=== PATIENT | male | born 1995 | race Caucasian/White ===

== ENCOUNTER 2019-12-03 05:26 | Emergency (ER) | payer OTHER ==
[~2019-12-03] VITALS: Ht 182.9 cm; Wt 74.8 kg
[2019-12-03] MEDS ORDERED: FAMOTIDINE 20 MG/2 ML VIAL IVP ONE (05:45)
[2019-12-03] MEDS ORDERED: IV NORMAL SALINE 1,000ML 1,000 ML IV SCH (05:45)
[2019-12-03] MEDS ORDERED: ONDANSETRON PF 4 MG/2 ML VIAL. IVP ONE (05:45)
--- NOTE | 2019-12-03 05:58 | PHYS DOC ---
Past History Past Medical History: No Pertinent History Past Surgical History: No Surgical History Additional Smoking Information: chews tobacco Alcohol Use: Occasionally Drug Use: None Adult General Chief Complaint Chief Complaint: NAUSEA/VOMITING/DIARRHEA HPI HPI Patient is a 23 year old male who presents with complaint of nausea, vomiting, and diarrhea. Patient states his symptoms started last night. Has had numerous episodes of both vomiting and diarrhea. States that the stools have been nonbloody. Denies any known sick contacts. Works at a local post. Denies any localizing pain in his abdomen at this time. Has not taking medications for symptoms. Denies any significant past medical history. No previous surgeries. Review of Systems Review of Systems Constitutional: Fatigue, denies fever or chills [] Eyes: Denies change in visual acuity, redness, or eye pain [] HENT: Denies nasal congestion or sore throat [] Respiratory: Denies cough or shortness of breath [] Cardiovascular: Denies chest pain or edema[] GI: Nausea, vomiting, diarrhea, denies abdominal pain[] : Denies dysuria or hematuria [] Musculoskeletal: Myalgias, denies back pain or joint pain [] Integument: Denies rash or skin lesions [] Neurologic: Denies headache, focal weakness or sensory changes [] All other systems were reviewed and found to be within normal limits, except as documented in this note. Current Medications Current Medications Current Medications Medications (Trade) Dose Ordered Sig/Alisha Start Time Stop Time Status Last Admin Dose Admin Famotidine (Pepcid Vial) 20 mg 1X ONCE 12/03/19 05:45 12/03/19 05:46 UNV Ondansetron HCl (Zofran) 4 mg 1X ONCE 12/03/19 05:45 12/03/19 05:46 UNV Sodium Chloride 1,000 ml @ 1,000 mls/hr Q1H 12/03/19 05:45 12/03/19 06:44 UNV Physical Exam Physical Exam Constitutional: Alert, afebrile, appears ill. [] HENT: Normocephalic, atraumatic, bilateral external ears normal, oropharynx moist, no oral exudates, nose normal. [] Eyes: PERRLA, EOMI, conjunctiva normal, no discharge. [] Neck: Normal range of motion, no tenderness, supple, no stridor. [] Cardiovascular: Tachycardia, regular rhythm, no murmur [] Lungs & Thorax: Bilateral breath sounds clear to auscultation [] Abdomen: Bowel sounds normal, soft, no tenderness, no masses, no pulsatile masses. [] Skin: Warm, dry, no erythema, no rash. [] Back: No tenderness, no CVA tenderness. [] Extremities: No tenderness, no cyanosis, no clubbing, ROM intact, no edema. [] Neurologic: Alert and oriented X 3, normal motor function, normal sensory function, no focal deficits noted. [] Current Patient Data Vital Signs Vital Signs Date Time Temp Pulse Resp B/P (MAP) Pulse Ox O2 Delivery O2 Flow Rate FiO2 12/03/19 05:36 99.1 70 20 96 Room Air EKG EKG Not performed[] Radiology/Procedures Radiology/Procedures [] Course & Med Decision Making Course & Med Decision Making Pertinent Labs and Imaging studies reviewed. (See chart for details) IV fluids and IV anti-emetics ordered. At time of sign out, lab work and response to treatment pending. Care of patient signed out to Dr.'s Dupree at [phone].[] Dragon Disclaimer Dragon Disclaimer This electronic medical record was generated, in whole or in part, using a voice recognition dictation system. Departure Departure: Impression: Primary Impression: Nausea and vomiting Additional Impression: Diarrhea Disposition: HOME/RESIDENCE PRIOR TO ADM Condition: STABLE Referrals: PCP,UNKNOWN (PCP) Problem Qualifiers CHEMO ISIDRO MD Dec 03, 2019 05:58
[2019-12-03 06:28] VITALS: BP 107/48
[2019-12-03 06:52] LABS: BASO % 1 % (0-3); EOS % 0 % (0-3); HEMATOCRIT 49.6 % (39.0-53.0); HEMOGLOBIN 16.8 g/dL (13.0-17.5); LYMPH # 0.4 x10^3/uL (1.0-4.8); LYMPH % 4 % (24-48); MEAN CORPUSCULAR HEMOGLOBIN 31 pg (25-35); MEAN CORPUSCULAR HGB CONC 34 g/dL (31-37); MEAN CORPUSCULAR VOLUME 91 fL (79-100); MONO # 0.4 x10^3/uL (0.0-1.1); MONO % 5 % (0-9); NEUT # 7.8 x10^3uL (1.8-7.7); NEUT % 90 % (31-73); PLATELET COUNT 165 x10^3/uL (140-400); RED BLOOD COUNT 5.43 x10^6/uL (4.30-5.70); RED CELL DISTRIBUTION WIDTH 12.5 % (11.5-14.5); WHITE BLOOD COUNT 8.6 x10^3/uL (4.0-11.0)
[2019-12-03 07:01] LABS: CREATININE 1.1 mg/dL (0.7-1.3); GFR 84.5; POTASSIUM 4.5 mmol/L (3.5-5.1)
[2019-12-03 07:07] LABS: ALBUMIN 4.3 g/dL (3.4-5.0); ALBUMIN/GLOBULIN RATIO 1.3 (1.0-1.7); TOTAL BILIRUBIN 4.1 mg/dL (0.2-1.0); TOTAL PROTEIN 7.7 g/dL (6.4-8.2)
--- NOTE | 2019-12-03 08:35 | RAD ---
Examination: ABDOMEN LTD History: Right upper quadrant pain Comparison/Correlation: None Findings: Right upper quadrant ultrasound exam was performed. Hepatic echotexture is within normal limits. Portal venous flow is unremarkable. Gallbladder is normal. No cholelithiasis or findings of pericholecystic fluid. Common bile duct measures 0.2 cm diameter. Liver length is 16.2 cm. No intrahepatic biliary dilatation. Right kidney measures 10.5 cm 4.4 cm x 5.5 cm. No right hydronephrosis. Right renal contour and echotexture are normal. The proximal pancreas is normal. Distal pancreas is obscured by bowel gas. Inferior vena cava is unremarkable. No right upper quadrant ascites. Impression: Normal right upper quadrant ultrasound exam. Electronically signed by: Pablo Newman MD (12/03/2019 8:32 AM) [facility]
[2019-12-03] MEDS ORDERED: ONDA4TAB7 PO (08:58)
== END 2019-12-03 09:05 | disposition home or self-care (01) ==
LOC: ER 05:26
DX: R11.2 Nausea with vomiting, unspecified (principal); R19.7 Diarrhea, unspecified; M79.10 Myalgia, unspecified site; Z87.891 Personal history of nicotine dependence
CPT/HCPCS: 36415; 76705; 80053; 82248; 83690; 85025; 96361; 96374; 96375; 99285; J2405; J3490; J7030

== ENCOUNTER 2019-12-20 22:51 | Emergency (ER) | payer OTHER ==
[~2019-12-20] VITALS: Ht 185.4 cm; Wt 73.0 kg
[~2019-12-20 22:51] MED LIST: ONDA4TAB7 PO
--- NOTE | 2019-12-20 22:53 | PHYS DOC ---
Past History Past Medical History: No Pertinent History Past Surgical History: No Surgical History Alcohol Use: Occasionally Drug Use: None Adult General Chief Complaint Chief Complaint: ".. I cut my finger.. about 10 hrs. 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 Patient was cutting peppers for dinner and slipped cutting his left thumb. Patient has approximately 2 cm laceration to the tip of left thumb. Distal neurovascular intact. Patient is up-to-date with vaccinations. No recent travel. No history immunosuppression. No history of ill contacts. Patient is right-hand dominant. Review of Systems Review of Systems Constitutional: Denies fever or chills [] Eyes: Denies change in visual acuity, redness, or eye pain [] HENT: Denies nasal congestion or sore throat [] Respiratory: Denies cough or shortness of breath [] Cardiovascular: No additional information not addressed in HPI [] GI: Denies abdominal pain, nausea, vomiting, bloody stools or diarrhea [] : Denies dysuria or hematuria [] Musculoskeletal: Denies back pain or joint pain []The patient has complaints of laceration to left forearm Integument: Denies rash or skin lesions [] Neurologic: Denies headache, focal weakness or sensory changes [] Endocrine: Denies polyuria or polydipsia [] All other systems were reviewed and found to be within normal limits, except as documented in this note. Family History Family History Noncontributory Current Medications Current Medications See nursing for home meds Allergies Allergies Allergies Coded Allergies Type Severity Reaction Last Updated Verified No Known Drug Allergies 12/03/19 No Physical Exam Physical Exam Constitutional: Well developed, well nourished, no acute distress, non-toxic appearance. [] HENT: Normocephalic, atraumatic, bilateral external ears normal, oropharynx moist, no oral exudates, nose normal. [] Eyes: PERRLA, EOMI, conjunctiva normal, no discharge. [] Neck: Normal range of motion, no tenderness, supple, no stridor. [] Cardiovascular:Heart rate regular rhythm, no murmur [] Lungs & Thorax: Bilateral breath sounds clear to auscultation [] Abdomen: Bowel sounds normal, soft, no tenderness, no masses, no pulsatile masses. [] Skin: Warm, dry, no erythema, no rash. []Except Laceration to left thumb as per history of present illness Back: No tenderness, no CVA tenderness. [] Extremities: No tenderness, no cyanosis, no clubbing, ROM intact, no edema. [] Neurologic: Alert and oriented X 3, normal motor function, normal sensory function, no focal deficits noted. [] Psychologic: Affect normal, judgement normal, mood normal. [] EKG EKG [] Radiology/Procedures Radiology/Procedures [] Course & Med Decision Making Course & Med Decision Making Pertinent Labs and Imaging studies reviewed. (See chart for details)- Wound cleaned and dressing applied. Patient to use Polysporin 4 times a day until laceration heals. Patient follow-up at [place]. Patient return if any concerns. Excessive amount of time to allow primary closure. Impression: 1. Laceration 2 cm left thumb [] Dragon Disclaimer Dragon Disclaimer This electronic medical record was generated, in whole or in part, using a voice recognition dictation system. Departure Departure: Disposition: 01 HOME/RESIDENCE PRIOR TO ADM Condition: STABLE Referrals: PCP,NO (PCP) Scripts Bacitracin/Polymyxin B Sulfate (POLYSPORIN OINTMENT) 28.3 Gm Oint...g. 28.3 GM TP QIDPRN PRN for lac, #120 MISC Prov: LUIS ANTONIO ORDOÑEZ MD 12/21/19 Carmen Disclaimer This chart was dictated in whole or in part using Voice Recognition software in a busy, high-work load, and often noisy Emergency Department environment. It may contain unintended and wholly unrecognized errors or omissions. Dragon Disclaimer This chart was dictated in whole or in part using Voice Recognition software in a busy, high-work load, and often noisy Emergency Department environment. It may contain unintended and wholly unrecognized errors or omissions. LUIS ANTONIO ORDOÑEZ MD Dec 20, 2019 22:53
[2019-12-21] MEDS ORDERED: BACI28.34 TP (00:13)
[2019-12-21] MEDS ORDERED: MUPIROCIN 2% TOPICAL OINTMENT 22GM TUBE. TP SCH (00:45)
[2019-12-21 01:30] VITALS: BP 130/80
== END 2019-12-21 01:29 | disposition home or self-care (01) ==
LOC: ER 22:51
DX: S61.012A Laceration without foreign body of left thumb without damage to nail, initial encounter (principal); W26.0XXA Contact with knife, initial encounter; Y93.89 Activity, other specified; Y92.89 Other specified places as the place of occurrence of the external cause; Y99.8 Other external cause status
CPT/HCPCS: 99283

== ENCOUNTER 2020-07-14 15:21 | Emergency (ER) | payer OTHER ==
[~2020-07-14] VITALS: Ht 368.3 cm; Wt 71.8 kg
[~2020-07-14 15:21] MED LIST changes: +BACI28.34 TP
[2020-07-14] MEDS ORDERED: cefTRIAXone IM 250 MG VIAL IM ONE (15:30)
[2020-07-14] MEDS ORDERED: AZITHROMYCIN 250 MG TABLET. PO ONE (15:30)
[2020-07-14 15:31] VITALS: BP 116/58
--- NOTE | 2020-07-14 15:56 | PHYS DOC ---
Past History Past Medical History: No Pertinent History Past Surgical History: No Surgical History Alcohol Use: None Drug Use: None General Adult EDM: Chief Complaint: SEXUALLY TRANSMITTED DISEASE HPI: HPI: 24 yo M who denies any past medical history presents to the ED for STI testing after he was told his girlfriend tested positive for chlamydia. Reports unprotected intercourse with females, no prior STI. States he has no symptoms. Review of systems: Denies associated fever, chills, cough, dyspnea, sore throat, nausea, vomiting, diarrhea, chest pain, leg swelling, rash-genital, urethral discharge, hematuria, dysuria, flank pain, abdominal pain, suprapubic pressure, genital swelling or pain. Heart Score: Risk Factors: Risk Factors: DM, Current or recent (<one month) smoker, HTN, HLP, family his tory of CAD, obesity. Risk Scores: Score 0 - 3: 2.5% MACE over next 6 weeks - Discharge Home Score 4 - 6: 20.3% MACE over next 6 weeks - Admit for Clinical Observation Score 7 - 10: 72.7% MACE over next 6 weeks - Early Invasive Strategies Current Medications: Current Meds: Current Medications Medications (Trade) Dose Ordered Sig/Alisha Start Time Stop Time Status Last Admin Dose Admin Azithromycin (Zithromax) 1,000 mg 1X ONCE 07/14/20 15:30 07/14/20 15:33 DC 07/14/20 15:42 1,000 MG Ceftriaxone Sodium (Rocephin Im) 250 mg 1X ONCE 07/14/20 15:30 07/14/20 15:33 DC 07/14/20 15:42 250 MG Allergies: Allergies: Allergies Coded Allergies Type Severity Reaction Last Updated Verified No Known Drug Allergies 12/03/19 No Physical Exam: PE: Constitutional: Well developed, well nourished, no acute distress, non-toxic appearance. [] HENT: Normocephalic, atraumatic, bilateral external ears normal, oropharynx moist, no oral exudates, nose normal. [] Eyes: PERRLA, EOMI, conjunctiva normal, no discharge. [] Neck: Normal range of motion, no tenderness, supple, no stridor. [] Cardiovascular:Heart rate regular rhythm, no murmur [] Lungs & Thorax: Bilateral breath sounds clear to auscultation [] Abdomen: Bowel sounds normal, soft, no tenderness, no masses, no pulsatile masses. [] Skin: Warm, dry, no erythema, no rash. [] Back: No tenderness, no CVA tenderness. [] Extremities: No tenderness, no cyanosis, no clubbing, ROM intact, no edema. [] Neurologic: Alert and oriented X 3, normal motor function, normal sensory function, no focal deficits noted. [] Psychologic: Affect normal, judgement normal, mood normal. [] Current Patient Data: Vital Signs: Vital Signs Date Time Temp Pulse Resp B/P (MAP) Pulse Ox O2 Delivery O2 Flow Rate FiO2 07/14/20 15:31 97.9 63 14 116/58 (77) 98 Room Air EKG: EKG: [] Radiology/Procedures: Radiology/Procedures: [] Course & Med Decision Making: Course & Med Decision Making Pertinent Labs and Imaging studies reviewed. (See chart for details) Encounter for possible mini exposure. Was treated for chlamydia and gonorrhea , PCR testing pending. Patient was referred to PMD for blood-borne testing along with trichomonas and syphilis testing. Advised abstain from sexual intercourse 7 days after until all partners are treated. Pt requests treatment and to be discharged home. Has no UTI sxs. Strict ED return precautions given for genital pain/swelling/rash, dysuria or hematuria, fever or flank pain. Encouraged urgent outpatient follow-up with PMD. Life-threatening processes were considered but are low suspicion at this time, given history and physical exam. Pt was educated on all prescription medications and adverse effects. All patient's questions were answered and pt was stable at time of discharge. Differential includes surgical abdomen (appendicitis, cholecystitis, diverticulitis, inflammatory bowel disease, abscess, perforation), necrotizing fasciitis, endocarditis, life-threatening rash, viral syndrome, urologic emergencies (testicular torsion, obstructive nephropathy, prostatitis), sepsis or shock, I spoken with the patient and her caregivers. I explained the patient's condition, diagnoses and treatment plan based on the information available to me at this time. I have answered the patient and her caregiver's questions and addressed any concerns. The patient and her caregivers have a good unde rstanding of patient's diagnosis, condition and treatment plan as can be expected at this point. Vital signs have been stable. Patient's condition is stable and appropriate for discharge from the emergency department. Patient will pursue further outpatient evaluation with primary care physician or other designated or consulting physician as outlined in the discharge instructions. The patient and/or caregivers are agreeable to this plan of care and follow-up instructions have been explained in detail. The patient and/or caregivers have received these instructions in written form and have expressed an understanding of the discharge instructions. The patient and/or caregivers are aware that any significant change of condition or worsening of symptoms matthew uld prompt immediate return to this or the closest emergency department or call to 911. Carmen Disclaimer: Carmen Disclaimer: This electronic medical record was generated, in whole or in part, using a voice recognition dictation system. Departure Departure: Impression: Primary Impression: Encounter for screening examination for sexually transmitted disease Disposition: HOME/RESIDENCE PRIOR TO ADM Condition: STABLE Referrals: PCP,NO (PCP) Patient Instructions: Safe Sex, Sexually Transmitted Disease Additional Instructions: Guillaume Moore MD Family Medicine Address: [address] [place] [address] Justification of Admission: Justification of Admission: Justification of Admission Dx: N/A LEELA RUST DO Jul 14, 2020 15:56
== END 2020-07-14 15:36 | disposition home or self-care (01) ==
LOC: ER 15:21
DX: Z20.2 Contact with and (suspected) exposure to infections with a predominantly sexual mode of transmission (principal)
CPT/HCPCS: 87491; 87591; 96372; 99283; J0456; J0696

== ENCOUNTER 2020-11-29 01:51 | Emergency (ER) | payer OTHER ==
[~2020-11-29] VITALS: Ht 185.4 cm; Wt 73.0 kg
--- NOTE | 2020-11-29 02:44 | PHYS DOC ---
Past History Past Medical History: No Pertinent History Past Surgical History: No Surgical History Alcohol Use: None Drug Use: None Adult General Chief Complaint Chief Complaint: SUICIDAL IDEATION HPI HPI Patient is a 24-year-old male that presents with his sheela melendezant for chief complaint of alcohol intoxication and suicidal ideation. Patient states he has been drinking ever clear since 8:00 yesterday morning as he is currently in quarantine after coming back from vacation as this is the protocol. Denies any cold/flu symptoms. His sheela sergeant stated that he had gotten really intoxicated and was making suicidal statements like he was going to bash his own head in an attempt to commit suicide. When confronting patient about this, he said he has no idea what his blood tendons are to talk about and cannot remember that at all. States currently he is not suicidal at all, has no plan, is not homicidal and is not hallucinating. Patient states that I am just really drunk and the only reason he is here is because he was ordered to by his sheela sergeant. States there was a time several years ago when he had had suicidal thoughts, while in the and went to behavioral health for making statements while he was drunk that he was going to shoot himself. It appears that patient makes the statements while intoxicated and is aware of this. But adamantly denies wanting to hurt himself in any way, anybody else either. Denies headache, neck pain, chest pain, shortness of breath, abdominal pain, nausea, vomiting, diarrhea. Denies any cold/flu symptoms. Review of Systems Review of Systems Review of systems otherwise unremarkable except noted in HPI. Allergies Allergies Allergies Coded Allergies Type Severity Reaction Last Updated Verified No Known Drug Allergies 12/03/19 No Physical Exam Physical Exam Constitutional: Well developed, well nourished, no acute distress, non-toxic appearance. [] HENT: Normocephalic, atraumatic, Eyes: conjunctiva normal, no discharge. [] Neck: Normal range of motion, no tenderness, supple, no stridor. [] Cardiovascular:Heart rate regular rhythm, no murmur [] Lungs & Thorax: Bilateral breath sounds clear to auscultation [] Abdomen: soft, no tenderness, Skin: Warm, dry, no erythema, no rash. [] Back: No tenderness, Extremities: No tenderness, no cyanosis, no clubbing, ROM intact, no edema. [] Neurologic: Alert and oriented X 3, normal motor function, normal sensory function, no focal deficits noted. [] Psychologic: Patient is cooperative in all aspects, but definitely agitated for being in the emergency department. Denies SI, HI, hallucinations. Patient does report while intoxicated he has made suicidal statements in the past such as, I am going to shoot myself but states that this is usually when he is drunk. States that he does drink quite a bit. EKG EKG [] Radiology/Procedures Radiology/Procedures [] Heart Score Risk Factors: Risk Factors: DM, Current or recent (<one month) smoker, HTN, HLP, family history of CAD, obesity. Risk Scores: Risk Factors: DM, Current or recent (<one month) smoker, HTN, HLP, family history of CAD, obesity. Course & Med Decision Making Course & Med Decision Making Patient is a 24-year-old male who presents on orders of his sheela melendezant for being intoxicated on alcohol and making suicidal statements Vital signs not concerning. Physical exam noted above. Patient given some food in the emergency department is cooperative with exam. Discussed the need for professional evaluation while he is not intoxicated to ensure that he is safe to be discharged. Patient cooperative this and said he would comply, eat and take a nap in the emergency department. After evaluation by PAT, both patient, PAT team, emergency department physician and patient's sheela melendezant were in agreement that he is having some stressors at home and does have a alcohol/substance abuse problem and needs help quitting but could also benefit from outpatient mental health management. Patient given resources from the PAT team and advised to follow-up with us as he can with these to begin the process. Both patient, PAT team, sheela burger feel safe with this plan, and discharged home. [] Dragon Disclaimer Dragon Disclaimer This electronic medical record was generated, in whole or in part, using a voice recognition dictation system. Departure Departure: Impression: Primary Impression: Alcohol intoxication Additional Impression: Suicidal ideation Disposition: 01 DC HOME SELF CARE/HOMELESS Condition: GOOD Referrals: PCP,UNKNOWN (PCP) Patient Instructions: Alcohol Intoxication, Suicidal Feelings, How to Help Yourself Additional Instructions: Please read all the attached information. Please try to cease drinking alcohol as this does appear to be a trigger for some stressors and suicidal thoughts. Please read and act on all the information given to you by our PAT team as soon as possible. Please come back to the emergency department immediately with any new or concerning symptoms. Problem Qualifiers LE BORJAS MD Nov 29, 2020 02:44
[2020-11-29 04:45] VITALS: BP 127/88
== END 2020-11-29 04:45 | disposition home or self-care (01) ==
LOC: ER 01:51
DX: R45.851 Suicidal ideations (principal); F10.129 Alcohol abuse with intoxication, unspecified; Y90.9 Presence of alcohol in blood, level not specified
CPT/HCPCS: 99285

== ENCOUNTER 2021-03-20 06:23 | Emergency (ER) | payer OTHER ==
[~2021-03-20] VITALS: Ht 185.4 cm; Wt 79.2 kg
[2021-03-20 06:30] VITALS: BP 124/66
[2021-03-20] MEDS ORDERED: CLIN300C9 PO (07:01)
--- NOTE | 2021-03-20 07:01 | PHYS DOC ---
Past History Past Medical History: No Pertinent History Past Surgical History: No Surgical History Smoking: Non-smoker Alcohol Use: Heavy Drug Use: None General Adult EDM: Chief Complaint: FINGER INJURY HPI: HPI: 25-year-old male presents with report of right index finger pain, redness, and swelling to distal aspect. Patient reports he accidentally stuck it with a volt meter needle on 03/18/2021 while working on his vehicle. Patient reports the needle was a solid needle and does not think any retained foreign body is present. Patient reports he has had a tetanus booster within the last 5 years. Denies any fever or chills. Patient also reports while working on his vehicle on Friday he also "jammed "his right ring finger. Reports some pain with range of motion and swelling around the PIP joint. Patient reports he is and try to follow with the clinic however they were "too busy " to see him. Review of Systems: Review of Systems: Constitutional: Denies fever or chills Eyes: Denies redness or eye pain HENT: Denies nasal congestion or sore throat Respiratory: Denies cough or shortness of breath Cardiovascular: Denies chest pain or palpitations GI: Denies abdominal pain, nausea, or vomiting : Denies dysuria or hematuria Musculoskeletal: Denies back pain; reports pain to right index and ring fingers Integument: Reports swelling to right index and ring finger, reports erythema to right distal index finger Neurologic: Denies headache, focal weakness or sensory changes Complete systems were reviewed and found to be within normal limits, except as documented in this note. Allergies: Allergies: Allergies Coded Allergies Type Severity Reaction Last Updated Verified No Known Drug Allergies 12/03/19 No Physical Exam: PE: Constitutional: Well developed, well nourished, no acute distress, non-toxic appearance HENT: Normocephalic, atraumatic Eyes: Conjunctiva normal, no discharge Neck: Normal range of motion, supple Lungs & Thorax: No respiratory distress, equal chest rise and fall Skin: Warm, dry, mild erythema to distal finger pain of right index finger, no fluctuance Extremities: Right distal index finger tenderness, ROM intact, some mild swelling noted to distal tip, right ring finger PIP tenderness on palpation and with ROM, no deformity noted Neurologic: Alert and oriented X 3, no focal deficits noted Psychologic: Affect normal, judgment normal EKG: EKG: [] Radiology/Procedures: Radiology/Procedures: PROCEDURE: HAND RIGHT 3V Study: XR HAND_RIGHT 3 VIEWS Indication: Index finger puncture injury. Ring finger PIP pain. Comparison: None. Findings: No acute fracture. Alignment is within normal limits and joint spaces are maintained. No retained radiopaque foreign body. Impression: No acute osseous abnormality or retained radiopaque foreign body. Electronically signed by: KEILY MATA MD (03/20/2021 7:17 AM) [id number] Heart Score: C/O Chest Pain: N/A Course & Med Decision Making: Course & Med Decision Making Pertinent Imaging studies reviewed. (See chart for details) Patient presents with report of right index finger swelling and redness to distal finger pad after history of puncture wound 3 days ago. No fluctuance appreciated consistent for felon, I&D not clinically warranted at this time. Reports his tetanus is up-to-date. Patient also reports "jamming "his right ring finger. Tenderness noted to PIP joint. X-ray of right hand obtained without signs of acute fracture or retained foreign body. Empiric antibiotic provided. Patient advised to follow-up with PCP/clinic in 2 days for further evaluation. Patient advised to return for any worsening of condition or for fever greater than 100.3 F. Patient stable for discharge with outpatient follow-up with PCP. Discussed findings and plan with patient, who acknowledges understanding and agreement. Carmen Disclaimer: Carmen Disclaimer: This electronic medical record was generated, in whole or in part, using a voice recognition dictation system. Splinting Splinting : Location: right ring finger Pre-Made Type: metal (finger splint) Pre-Proc Neuro Vasc Exam: normal Post-Proc Neuro Vasc Exam: normal, unchanged from pre-exam Departure Departure: Impression: Primary Impression: Infected puncture wound of right index finger Qualified Codes: S61.230A - Puncture wound without foreign body of right index finger without damage to nail, initial encounter; L08.9 - Local infection of the skin and subcutaneous tissue, unspecified Additional Impression: Sprain of finger of right hand Qualified Codes: S63.634A - Sprain of interphalangeal joint of right ring finger, initial encounter Disposition: HOME / SELF CARE / HOMELESS Condition: STABLE Referrals: PCP,UNKNOWN (PCP) Patient Instructions: Finger Sprain, [id number], Puncture Wound, [id number] Additional Instructions: ICE ring finger 20 min on then leave off next 20 mins. Repeat several times daily as needed for pain or discomfort. Wear finger splint for protection. May take off to shower. Use [id number] ibuprofen and/or Tylenol for pain or discomfort. Please take antibiotic as directed to completion. Return for any worsening of symptoms including increased pain, redness, or fever greater than 100.3 F. Scripts Clindamycin Hcl (CLINDAMYCIN HCL) 300 Mg Capsule 3 CAP PO TID for infection for 7 Days, #63 CAP Prov: JAMILAH DE LA CRUZ DO 03/20/21 JAMILAH DE LA CRUZ DO March 20, 2021 07:01
--- NOTE | 2021-03-20 07:19 | RAD ---
Study: XR HAND_RIGHT 3 VIEWS Indication: Index finger puncture injury. Ring finger PIP pain. Comparison: None. Findings: No acute fracture. Alignment is within normal limits and joint spaces are maintained. No retained rad iopaque foreign body. Impression: No acute osseous abnormality or retained radiopaque foreign body. Electronically signed by: KEILY MATA MD (03/20/2021 7:17 AM) [id number]
[2021-03-20] MEDS ORDERED: CLINDAMYCIN HCL 150 MG CAPSULE PO ONE (07:30)
== END 2021-03-20 07:15 | disposition home or self-care (01) ==
LOC: ER 06:23
DX: S61.230A Puncture wound without foreign body of right index finger without damage to nail, initial encounter (principal); S63.634A Sprain of interphalangeal joint of right ring finger, initial encounter; L08.9 Local infection of the skin and subcutaneous tissue, unspecified; F10.20 Alcohol dependence, uncomplicated; Y90.9 Presence of alcohol in blood, level not specified; W46.0XXA Contact with hypodermic needle, initial encounter; Y93.89 Activity, other specified; Y92.89 Other specified places as the place of occurrence of the external cause; Y99.8 Other external cause status
CPT/HCPCS: 29130; 73130; 99283